=== PATIENT | male | born 1975 | race Caucasian/White ===

== ENCOUNTER 2018-12-23 01:39 | Emergency (ER) | payer SELFPAY ==
[~2018-12-23] VITALS: Ht 182.9 cm; Wt 102.5 kg
[2018-12-23] MEDS ORDERED: LISI-338 PO (01:55)
[2018-12-23] MEDS ORDERED: CYCL10TA2 PO (01:55)
[2018-12-23] MEDS ORDERED: OMEP40CA5 PO (01:55)
[2018-12-23] MEDS ORDERED: GABA600T7 PO (01:55)
[2018-12-23] MEDS ORDERED: CLON2TAB9 PO (01:55)
[2018-12-23] MEDS ORDERED: WARF6TAB49 PO (01:55)
--- NOTE | 2018-12-23 02:05 | PHYS DOC ---
Adult General Chief Complaint Chief Complaint: HEADACHE HPI HPI Patient is a 43 year old male with h/o venous sinus thrombosis, DVT, recurrent headaches who presents with gradual onset headache starting approximately 5 marce rs prior to ED arrival. Headache is described as dull, with sharp components with tingling of the left side of his sikhism and face. It is associated with nausea without vomiting. Patient took Tylenol and ibuprofen without effect. Does report mild dizziness. No neck pain, extremity weakness or loss of sensation. Denies sinus pain or drainage. Headache is different than prior venous sinus thrombosis. Patient states his INR was checked one week ago and was therapeutic at that time. No other acute symptoms or complaints.[] Review of Systems Review of Systems Review of symptoms as per history of present illness. All other review symptoms are negative. All other systems were reviewed and found to be within normal limits, except as documented in this note. Current Medications Current Medications Current Medications Medications (Trade) Dose Ordered Sig/Deidre Start Time Stop Time Status Last Admin Dose Admin Diphenhydramine HCl (Benadryl) 25 mg 1X ONCE 12/23/18 02:15 12/23/18 02:16 DC 12/23/18 02:08 25 MG Metoclopramide HCl (Reglan Vial) 10 mg 1X ONCE 12/23/18 02:15 12/23/18 02:16 DC 12/23/18 02:07 10 MG Prochlorperazine Edisylate (Compazine) 10 mg 1X ONCE 12/23/18 02:15 12/23/18 02:16 DC 12/23/18 02:07 10 MG Sodium Chloride 1,000 ml @ 1,000 mls/hr 1X ONCE 12/23/18 02:30 12/23/18 03:30 DC 12/23/18 02:07 1,000 MLS/HR Allergies Allergies Allergies Coded Allergies Type Severity Reaction Last Updated Verified No Known Drug Allergies 12/23/18 No Physical Exam Physical Exam Constitutional: Well developed, well nourished, moderate discomfort secondary to pain. [] HENT: Normocephalic, atraumatic, bilateral external ears normal, oropharynx moist, no oral exudates, nose normal. [] Eyes: PERRLA, EOMI, conjunctiva normal. [] Neck: Normal range of motion. [] Cardiovascular:Heart rate regular rhythm, no murmur. [] Lungs & Thorax: Bilateral breath sounds clear to auscultation [] Abdomen: Bowel sounds normal, soft, no tenderness. [] Skin: Warm, dry. [] Back: No tenderness. [] Extremities: No tenderness. [] Neurologic: Alert and oriented X 3, CN 2-12 intact, normal motor function, normal sensory function, no focal deficits noted. [] Psychologic: Affect normal, judgement normal, mood normal. [] Current Patient Data Vital Signs Vital Signs Date Time Temp Pulse Resp B/P (MAP) Pulse Ox O2 Delivery O2 Flow Rate FiO2 12/23/18 05:24 79 20 98 12/23/18 02:00 98.4 129/83 (98) Room Air 98.4 Lab Values Laboratory Tests Test 12/23/18 02:10 White Blood Count 10.8 x10^3/uL (4.0-11.0) Red Blood Count 4.76 x10^6/uL (4.30-5.70) Hemoglobin 14.9 g/dL (13.0-17.5) Hematocrit 43.3 % (39.0-53.0) Mean Corpuscular Volume 91 fL (79-100) Mean Corpuscular Hemoglobin 31 pg (25-35) Mean Corpuscular Hemoglobin Concent 34 g/dL (31-37) Red Cell Distribution Width 13.5 % (11.5-14.5) Platelet Count 434 x10^3/uL (140-400) H Neutrophils (%) (Auto) 41 % (31-73) Lymphocytes (%) (Auto) 46 % (24-48) Monocytes (%) (Auto) 9 % (0-9) Eosinophils (%) (Auto) 3 % (0-3) Basophils (%) (Auto) 1 % (0-3) Neutrophils # (Auto) 4.4 x10^3uL (1.8-7.7) Lymphocytes # (Auto) 5.0 x10^3/uL (1.0-4.8) H Monocytes # (Auto) 1.0 x10^3/uL (0.0-1.1) Eosinophils # (Auto) 0.3 x10^3/uL (0.0-0.7) Basophils # (Auto) 0.1 x10^3/uL (0.0-0.2) Prothrombin Time 24.2 SEC (11.7-14.0) H Prothrombin Time INR 2.2 (0.8-1.1) H Sodium Level 140 mmol/L (136-145) Potassium Level 4.1 mmol/L (3.5-5.1) Chloride Level 104 mmol/L (98-107) Carbon Dioxide Level 26 mmol/L (21-32) Anion Gap 10 (6-14) Blood Urea Nitrogen 13 mg/dL (8-26) Creatinine 1.0 mg/dL (0.7-1.3) Estimated GFR (Cockcroft-Gault) 80.8 Glucose Level 128 mg/dL (70-99) H Calcium Level 8.8 mg/dL (8.5-10.1) Laboratory Tests 12/23/18 02:10 Laboratory Tests 12/23/18 02:10 EKG EKG [] Radiology/Procedures Radiology/Procedures [] Course & Med Decision Making Course & Med Decision Making Pertinent Labs and Imaging studies reviewed. (See chart for details) [ History of venous sinus thrombosis currently on Coumadin, Patient resting comfortably after treatment. Headache resolved. Vital signs stable. INR 2.2. CT/MRV the imaging offered and declined. Patient states is similar to recurrent headache pattern prefers home and rest. PCP/neurology follow-up recommended. Return precautions reviewed.] Dragon Disclaimer Dragon Disclaimer This electronic medical record was generated, in whole or in part, using a voice recognition dictation system. Departure Departure Impression: Primary Impression: Headache Disposition: 01 HOME, SELF-CARE Condition: STABLE Patient Instructions: General Headache Without Cause Scripts Prochlorperazine Maleate (Compazine) 10 Mg Tablet 10 MG PO Q8HRS for NAUSEA MDD 3, #10 TAB Prov: DEBBIE WATSON DO 12/23/18 DEBBIE WATSON DO December 23, 2018 02:05
[2018-12-23] MEDS ORDERED: PROCHLORPERAZINE 10 MG/2 ML VIAL. IV ONE (02:15)
[2018-12-23] MEDS ORDERED: METOCLOPRAMIDE HCL 10 MG/2 ML VIAL. IV ONE (02:15)
[2018-12-23] MEDS ORDERED: diphenhydrAMINE 50 MG/ML VIAL IVP ONE (02:15)
[2018-12-23 02:21] LABS: BASO # 0.1 x10^3/uL (0.0-0.2); BASO % 1 % (0-3); EOS # 0.3 x10^3/uL (0.0-0.7); EOS % 3 % (0-3); HEMATOCRIT 43.3 % (39.0-53.0); HEMOGLOBIN 14.9 g/dL (13.0-17.5); LYMPH % 46 % (24-48); MEAN CORPUSCULAR HEMOGLOBIN 31 pg (25-35); MEAN CORPUSCULAR HGB CONC 34 g/dL (31-37); MEAN CORPUSCULAR VOLUME 91 fL (79-100); MONO % 9 % (0-9); NEUT # 4.4 x10^3uL (1.8-7.7); NEUT % 41 % (31-73); PLATELET COUNT 434 x10^3/uL (140-400); RED BLOOD COUNT 4.76 x10^6/uL (4.30-5.70); RED CELL DISTRIBUTION WIDTH 13.5 % (11.5-14.5); WHITE BLOOD COUNT 10.8 x10^3/uL (4.0-11.0)
[2018-12-23] MEDS ORDERED: IV NORMAL SALINE 1000ML BAG 1,000 ML IV ONE (02:30)
[2018-12-23 02:31] LABS: PROTHROMBIN TIME PATIENT 24.2 SEC (11.7-14.0)
[2018-12-23 02:32] LABS: CALCIUM 8.8 mg/dL (8.5-10.1); GFR 80.8; POTASSIUM 4.1 mmol/L (3.5-5.1)
[2018-12-23 04:10] VITALS: BP 134/64
[2018-12-23] MEDS ORDERED: PROC10TA57 PO (05:28)
== END 2018-12-23 05:46 | disposition home or self-care (01) ==
LOC: ER 01:39
DX: R51 Headache (principal); R42 Dizziness and giddiness; Z86.718 Personal history of other venous thrombosis and embolism
CPT/HCPCS: 36415; 80048; 85025; 85610; 96361; 96374; 96375; 99284; J0780; J1200; J2765; J7030